=== PATIENT | male | born 1995 | race Two or more races ===

== ENCOUNTER 2019-06-09 04:16 | Emergency (ER) | payer BC, OTHER ==
[2019-06-09] MEDS ORDERED: KETAMINE HCL INJ 500 MG/10 ML VIAL IM ONE (04:19)
[2019-06-09] MEDS ORDERED: MIDAZOLAM 2 MG/2 ML INJ IM ONE ×2 (04:19→04:45)
[2019-06-09] MEDS ORDERED: HALOPERIDOL LACTATE INJ 5 MG/1 ML VIAL IM ONE (04:44)
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
[2019-06-09] MEDS ORDERED: DIPH/PERTUSS(ACELL)/TETANUS VAC/PF 0.5 ML SYR (>=10YO) IM ONE (05:21)
[2019-06-09] MEDS ORDERED: HALOPERIDOL LACTATE INJ 5 MG/1 ML VIAL ONE (05:45)
[2019-06-09 06:12] LABS: APPEARANCE,URINE CLEAR; BILIRUBIN,URINE NEGATIVE (NEGATIVE); COLOR,URINE YELLOW; GLUCOSE, URINE NEGATIVE (NEGATIVE); KETONES,URINE NEGATIVE (NEGATIVE); LEUKOCYTE ESTERASE,URINE NEGATIVE (NEGATIVE); NITRITE,URINE NEGATIVE (NEGATIVE); PROTEIN,URINE NEGATIVE (NEGATIVE); URINE SPECIFIC GRAVITY 1.008; UROBILINOGEN,URINE NEGATIVE mg/dL (<2.0)
[2019-06-09 06:17] LABS: ABSOLUTE BASOPHILS # (AUTO) 0.1 10^3/uL (0.0-0.2); ABSOLUTE LYMPHOCYTES (AUTO) 2.3 10^3/uL (0.5-4.7); ABSOLUTE MONOCYTES (AUTO) 0.7 10^3/uL (0.1-1.4); ABSOLUTE NEUT (AUTO) 5.8 10^3/uL (1.7-8.2); EOSINOPHILS % (AUTO) 0.5 % (0-6); HEMATOCRIT 41.7 % (37.9-51.0); HEMOGLOBIN 15.3 g/dL (13.5-17.0); MEAN CORPUSCULAR HEMOGLOBIN 29.7 pg (27.0-33.4); MEAN CORPUSCULAR HGB CONC 36.6 g/dL (32.0-36.0); MEAN CORPUSCULAR VOLUME 81 fl (80-97); MONOCYTES % (AUTO) 8.2 % (3-13); PLATELET COUNT 302 10^3/uL (150-450); RED BLOOD COUNT 5.14 10^6/uL (4.35-5.55); RED CELL DISTRIBUTION WIDTH 12.7 % (11.5-14.0); SEGMENTED NEUTROPHILS % (AUTO) 64.3 % (42-78); TOTAL CELLS COUNTED % (AUTO) 100 %
[2019-06-09 06:21] LABS: ACETAMINOPHEN < 10 ug/mL (10-30); ALBUMIN 4.5 g/dL (3.5-5.0); ALCOHOL < 10 mg/dL (NONE DETECTED); ALKALINE PHOSPHATASE 36 U/L (38-126); ANION GAP 9 (5-19); ASPARTATE AMINO TRANSFERASE 43 U/L (17-59); BILIRUBIN,DIRECT 0.2 mg/dL (0.0-0.4); BILIRUBIN,TOTAL 0.7 mg/dL (0.2-1.3); BLOOD UREA NITROGEN 11 mg/dL (7-20); CALCIUM 9.8 mg/dL (8.4-10.2); CARBON DIOXIDE 25 mmol/L (22-30); CHLORIDE 103 mmol/L (98-107); GLUCOSE 101 mg/dL (75-110); POTASSIUM 3.6 mmol/L (3.6-5.0); SALICYLATE < 1.0 mg/dL (2.0-20.0); TOTAL PROTEIN 7.3 g/dL (6.3-8.2)
[2019-06-09 06:25] LABS: URINE AMPHETAMINES SCREEN NEGATIVE; URINE BARBITURATES SCREEN NEGATIVE; URINE COCAINE SCREEN NEGATIVE; URINE METHADONE SCREEN NEGATIVE; URINE PHENCYCLIDINE SCREEN NEGATIVE
[2019-06-09 06:26] LABS: URINE BENZODIAZEPINES SCREEN UNCONFIRMED POSITIVE; URINE MARIJUANA (THC) SCREEN UNCONFIRMED POSITIVE
--- NOTE | 2019-06-09 07:13 | RADIOLOGY REPORT (SQ) ---
EXAM DESCRIPTION: XR CHEST 1 VIEW COMPLETED DATE/TME: 06/09/2019 05:46 CLINICAL HISTORY: 24 years Male, left lower rib pain COMPARISON: None. NUMBER OF VIEWS/TECHNIQUE: 1/AP FINDINGS: Adequate lung volume, clear parenchyma, normal cardiac silhouette, and intact bony thorax. IMPRESSION: No acute cardiopulmonary findings.
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
--- NOTE | 2019-06-09 08:00 | EKG REPORT ---
SEVERITY:- OTHERWISE NORMAL ECG - SINUS ARRHYTHMIA, RATE 60-97 BORDERLINE LEFT AXIS DEVIATION : Confirmed by: Nataly Madrigal MD 09-Jun-2019 08:00:23
[2019-06-09] MEDS ORDERED: CHLORPROMAZINE HCL 50 MG TABLET PO ONE (08:11)
[2019-06-09] MEDS ORDERED: BENZTROPINE MESYLATE 1 MG TABLET PO ONE (08:11)
[2019-06-09] MEDS ORDERED: LORAZEPAM 1 MG TABLET PO ONE (10:07)
[2019-06-09] MEDS ORDERED: ZIPRASIDONE MESYLATE INJ/PF 20 MG SDV IM ONE ×2 (10:12→21:48)
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
[2019-06-09] MEDS: CHLORPROMAZINE HCL 50 MG TABLET PO SCH (18:20)
--- NOTE | 2019-06-09 21:54 | EKG REPORT ---
SEVERITY:- OTHERWISE NORMAL ECG - SINUS TACHYCARDIA BORDERLINE RIGHT AXIS DEVIATION : Confirmed by: Nataly Madrigal MD 09-Jun-2019 21:54:32
[2019-06-10] MEDS: CHLORPROMAZINE HCL 50 MG TABLET PO SCH ×4 (00:35→17:21)
--- NOTE | 2019-06-10 01:03 | ER Document Report ---
Doctor's Note Notes: 06/10/19 05:01 Patient turned over to me for continued ED boarding pending disposal from psych service. Patient seen by psychiatry earlier in the day, recommends involuntary admission, but unable to place patient yet. Patient remains on one-to-one observation and has required restraints intermittently. Has has had restraints removed several times throughout his ED course at times patient is compliance, but has had several attempts at elopement which patient does not have capacity to do and thus has required replacement of restraints. On my reevaluation, patient is in bed without any complaints. He is awake and calm denies any current complaints, pain, or any needs at this time. He says he is not [place], he knows who he is, and he is going to his girlfriend, channeling shares song regarding time. Patient's psychiatric status has not changed significantly, and remains appropriate for inpatient psych treatment and evaluation. Patient comfortable awake alert, no concerning physical exam findings. Patient's hands pain has resolved and all films reviewed and negative. We will continue to monitor pending psychiatric disposition.
[2019-06-10] MEDS ORDERED: BENZTROPINE MESYLATE 1 MG TABLET PO SCH (10:00)
--- NOTE | 2019-06-10 10:15 | ER Document Report ---
Doctor's Note Notes: 06/10/19 10:11 Patient seen and examined. In short this is a 24-year-old male, brought in for agitation, nonlinear thinking, hallucinations. I sat in the room and talk to the patient. He states to me that he believes he has a handle on his problems. I asked him to describe those, and he states it all comes down to the rule of threes." He states to me that he was able to "split his personality into 3" to deal with the things that were causing him problems, and he now believes in his heart that he is making himself better. He talks randomly about demons, his speech is not pressured at this time, but he exhibits nonlinear thought. Vital signs reviewed. Patient was mildly tachycardic at 1 point, but not tachycardic at the time of my evaluation. Head is normocephalic and atraumatic, pupils are equal round, reactive to light. Oral mucosa is moist. Heart is regular rate and rhythm, lungs are clear to auscultation bilaterally. Patient is cooperative with examiner, somewhat drowsy, but answers questions. Thought is nonlinear, exhibiting some delusions. Patient is calm and cooperative, although he does require some redirecting at times. Awaiting formal disposition, likely will require inpatient admission. (LEROY TEJEDA) Course - Laboratory Result Diagrams: 06/09/19 05:56 06/09/19 05:56 - Re-evaluation Re-evalutation: 06/11/19 08:35 Pt seen and stable and BP improved from earlier. He has been accepted at [facility] and they are en route to get him. [facility] will be here soon. (JOE DERAS) - Vital Signs Vital signs: Temp Pulse Resp BP Pulse Ox 97.6 F 105 H 18 147/98 H 95 06/11/19 05:52 06/11/19 05:52 06/11/19 05:52 06/11/19 08:16 06/11/19 05:52 - Laboratory Laboratory results interpreted by me: 06/09/19 06/09/19 05:56 05:56 MCHC 36.6 H ALT 86 H Alkaline Phosphatase 36 L Salicylates < 1.0 L Acetaminophen < 10 L Discharge - Discharge Clinical Impression: Violent behavior, Acute psychosis Condition: Serious Disposition: PSYCH HOSP/UNIT Instructions: High Blood Pressure ([facility]), High Blood Pressure, Requiring Treatment ([facility]), Hallucinations ([facility]) Additional Instructions: You are headed to [facility] for further treatment. Your blood pressure was elevated here and needs some followup. Forms: Elevated Blood Pressure Referrals: RIOS YOUSSEF MD [ACTIVE STAFF] - Follow up as needed
--- NOTE | 2019-06-10 14:26 | PSYCHOLOGICAL NOTE ---
Psych Note - Psych Note Date seen by psych provider: 06/10/19 Time seen by psych provider: 13:35 Psych Note: Reason for Consult: AMS Patient is currently under IVC for possible psychosis due to substance (hash). Patient reports he has been Dabbing with hash resin. Patient discusses he was sent home from work and was doing research on cryptocurrency. He had to receive medication to help stabilize his behaviours and is currently still feeling the effects as evidenced by his eyes only being half opened and sluggish movements with his body. He is noted to still present with pressured speech,flight of ideas and some psychomotor agitation as evidenced of the patient wringing his hands and trying to move (but it noted to be sluggish as noted previously). Patient talks about his uncle just dying recently and no one cried at the . He continued to state that the "emotions created a chemical imbalance in his heart." He continued to state "things are going full [place]." He was unable to explain what he meant or when his uncle . He states he thinks it was last year and that he is thinking about taking a voicemail that he has saved into a recording for a stuffed bear so his father "can hear his brother one more time." Medication recommendations per [facility] contracted psychiatrist Dr. Leslie MD are as follows: Continue Thorazine 50mg, every 6 hours Continue Cogentin 1mg, daily Impression/Plan: Patient is recommended to continue under IVC. Patient continues to demonstrate craig with pressured speech, flight of ideas, and psychomotor agitation. He has required bot physical and chemical restraints (he has been out of physical restraints since 3am this morning). Medication recommendations have been provided. Patient has been accepted to [facility] for tomorrow. Dr. Gomez was consulted on the care and management of this patient; attending physician is in agreement with recommendations and disposition.
[2019-06-10] MEDS ORDERED: LORAZEPAM 1 MG TABLET PO ONE (17:23)
[2019-06-11] MEDS: CHLORPROMAZINE HCL 50 MG TABLET PO SCH ×2 (00:33→06:20)
[2019-06-11] MEDS ORDERED: METOPROLOL SUCCINATE 25 MG TAB.SR.24H PO ONE (07:12)
[2019-06-11 09:08] VITALS: BP 140/106
== END 2019-06-11 09:11 ==
LOC: ER 04:16
DX: R45.6 Violent behavior (principal); F23 Brief psychotic disorder; Z78.1 Physical restraint status
CPT/HCPCS: 93005; 99285; 96372; 90471; 36415; 80307 ×4; 85025; 80053; 81001; 71045; 73120; 73100; 90715; 93010; J2250; J3490 ×3; J1630; J3486